=== PATIENT | female | born 1995 | race American Indian/Alaskan Native ===

== ENCOUNTER 2021-10-26 16:50 | Emergency (ER) | payer OTHER ==
[2021-10-26 17:34] VITALS: BP 116/74
[2021-10-26] MEDS ORDERED: IBUPROFEN 400 MG TAB PO ONE (17:50)
[2021-10-26] MEDS ORDERED: METOCLOPRAMIDE 10 MG TAB PO ONE (17:50)
--- NOTE | 2021-10-26 17:56 | Emergency Department Report ---
ED General Adult HPI - General Chief complaint: Head Injury Stated complaint: POSS CONCUSSION PUI?: No Time Seen by Provider: 10/26/21 17:36 Source: patient, RN notes reviewed Mode of arrival: Ambulatory Limitations: No Limitations - History of Present Illness Initial comments: The patient was evaluated in the emergency department for symptoms described in the history of present illness. He/she was evaluated in the context of the global COVID-19 pandemic, which necessitated consideration that the patient might be at risk for infection with the virus that causes COVID-19. Institutional protocols and algorithms that pertain to the evaluation of patients at risk for COVID-19 are in a state of rapid change based on informa tion released by regulatory bodies including the CDC and federal and state organizations. These policies and algorithms were followed during the patient's care in the emergency department. Please note that these policies, procedures and recommendations changed on a rapid basis. The patient is a 26-year-old female who reports that she is not , who also reports that she is not COVID-19 vaccinated. She presents to the ER today with a complaint of closed head injury that was sustained this morning, at approximately 1:30 in the morning while in [facility]. The patient reports that she was at a [employer], had consumed alcohol, and hit her head on glass. The glass did not shatter. She does not believe that she fell or hurt her head from standing. She has a mild headache with nausea. No vomiting. No loss of vision. No additional injuries or complaints. No neck pain. She reports that her mother drove her from [place] to [place]. She is seeking reassurance that she does not have a concussion. -: This morning Location: head Severity scale (0 -10): 6 Quality: aching Consistency: intermittent Improves with: rest Worsens with: movement - Related Data Previous Rx's Medication Instructions Recorded Last Taken Type Acetaminophen [Non-Aspirin Extra 500 mg PO Q6HR PRN #30 tablet 10/26/21 Unknown Rx Strength] Ibuprofen [Motrin] 600 mg PO Q8H PRN #30 tablet 10/26/21 Unknown Rx Metoclopramide [Reglan] 10 mg PO QID PRN #30 tablet 10/26/21 Unknown Rx Allergies Allergy/AdvReac Type Severity Reaction Status Date / Time No Known Allergies Allergy Unverified 10/26/21 17:30 ED Review of Systems ROS: Stated complaint: POSS CONCUSSION Other details as noted in HPI Constitutional: malaise. denies: fever Eyes: denies: eye discharge, vision change ENT: denies: epistaxis Respiratory: denies: cough Cardiovascular: denies: chest pain Gastrointestinal: nausea. denies: vomiting Neurological: headache. denies: weakness ED Past Medical Hx - Past Medical History Previous Medical History?: Yes Hx Asthma: Yes - Surgical History Past Surgical History?: No - Medications Home Medications: Home Medications Medication Instructions Recorded Confirmed Last Taken Type Acetaminophen [Non-Aspirin Extra 500 mg PO Q6HR PRN #30 tablet 10/26/21 Unknown Rx Strength] Ibuprofen [Motrin] 600 mg PO Q8H PRN #30 tablet 10/26/21 Unknown Rx Metoclopramide [Reglan] 10 mg PO QID PRN #30 tablet 10/26/21 Unknown Rx ED Physical Exam - General Limitations: No Limitations General appearance: alert, in no apparent distress - Head Head exam: Present: atraumatic, normocephalic - Eye Eye exam: Present: normal appearance, PERRL, EOMI, other (Visual acuity intact to finger counting, color perception, reading at a close distance). Absent: nystagmus - ENT ENT exam: Present: normal exam, normal orophraynx, mucous membranes moist, TM's normal bilaterally, normal external ear exam - Neck Neck exam: Present: normal inspection, full ROM. Absent: tenderness, meningismus - Respiratory Respiratory exam: Present: normal lung sounds bilaterally. Absent: respiratory distress, wheezes, rales, rhonchi, stridor, decreased breath sounds - Cardiovascular Cardiovascular Exam: Present: regular rate, normal rhythm, normal heart sounds. Absent: bradycardia, tachycardia, irregular rhythm, systolic murmur, diastolic murmur, rubs, gallop - GI/Abdominal GI/Abdominal exam: Present: soft. Absent: distended, tenderness, guarding, rebound, rigid, pulsatile mass - Extremities Exam Extremities exam: Present: normal inspection, full ROM, other (2+ pulses noted in the bilateral upper and lower extremities. There is no palpable cord. negative Homans sign. Muscular compartments are soft. The pelvis is stable.). Absent: pedal edema, calf tenderness - Back Exam Back exam: Present: normal inspection, full ROM. Absent: tenderness, CVA tenderness (R), CVA tenderness (L), paraspinal tenderness, vertebral tenderness - Neurological Exam Neurological exam: Present: alert, oriented X3, normal gait, other (No facial droop. Tongue midline. Extraocular movements intact bilaterally. Facial sensation intact to light touch in V1, V2, V3 distribution bilaterally. 5 and a 5 strength in 4 extremities. Sensation intact to light touch in 4 extremities.). Absent: motor sensory deficit - Psychiatric Psychiatric exam: Present: normal affect, normal mood - Skin Skin exam: Present: warm, dry, intact, normal color. Absent: rash ED Course Vital Signs 10/26/21 17:34 Temperature 98.2 F Pulse Rate 70 Respiratory 20 Rate Blood Pressure 116/74 [Right] O2 Sat by Pulse 99 Oximetry ED Medical Decision Making - Lab Data Vital Signs 10/26/21 17:34 Temperature 98.2 F Pulse Rate 70 Respiratory 20 Rate Blood Pressure 116/74 [Right] O2 Sat by Pulse 99 Oximetry - Medical Decision Making Differential diagnosis, including but not limited to: Concussion, closed head injury, encounter for medical screening examination Assessment and plan: 26-year-old female, who is afebrile, with reassuring vital signs, who is clinically sober with a GCS of 15, NIH score of 0, patient is clinically sober at this time. The cervical spine is cleared through nexus and [place] c spine rule presenting with mild closed head injury, and probable mild concussion. Discussed natural history of concussion. Supportive care, oral medications, and outpatient follow-up. All questions answered. Patient low risk for significant intracranial injury as per the [place] head trauma rule. Critical care attestation.: If time is entered above; I have spent that time in minutes in the direct care of this critically ill patient, excluding procedure time. ED Disposition Clinical Impression: COVID-19 vaccination not done Closed head injury Qualifiers: Encounter type: initial encounter Qualified Code(s): S09.90XA - Unspecified injury of head, initial encounter Disposition: 01 HOME / SELF CARE / HOMELESS Is pt being admited?: No Does the pt Need Aspirin: No Condition: Good Instructions: Returning to School After a Concussion, Teen Additional Instructions: As we discussed, patient is likely experiencing sequelae of minor closed head injury, and alcohol consumption. We recommend that the patient abstain from alcohol consumption. We also recommend that the patient not participate in heavy duty lifting, strenuous physical activity, or contact sports or athletics until cleared to do so by her primary care physician. Symptoms of concussion may last for a few days, weeks or months. We recommend follow-up with a primary care doctor within the next 7 to 10 days for repeat checkup and evaluation. Advance diet as tolerated, drink plenty of fluids, patient may return to light athletics and light duty and 48 hours. Recommend that patient complete COVID-19 vaccination series when able to. Please return to the emergency room right away with new pain, worsened pain, migration of pain, projectile vomiting, change in mental status, confusion, inability tolerate liquid feeds, new, worsened or different symptoms not present on the initial emergency room evaluation Referrals: [facility] [Provider Group] - 3-5 Days Forms: Work/School Release Form(ED)
== END 2021-10-26 18:09 | disposition home or self-care (01) ==
LOC: ED 16:50
DX: S09.90XA Unspecified injury of head, initial encounter (principal); J45.909 Unspecified asthma, uncomplicated; X58.XXXA Exposure to other specified factors, initial encounter; Y93.89 Activity, other specified; Y92.89 Other specified places as the place of occurrence of the external cause; Y99.8 Other external cause status
CPT/HCPCS: 99282

== ENCOUNTER 2022-05-05 18:33 | Emergency (ER) | payer OTHER ==
[2022-05-05 20:15] VITALS: BP 122/71
--- NOTE | 2022-05-07 09:47 | Electrocardiograph Report ---
[facility] Test Date: 2022-05-05 Test Time: 20:21:26 Pat Name: KARYN SOSA Department: Room: Gender: F Rating Specialist: LUIS : 1995 Requested By: ZEB CRUZ Order Number: [id number] Reading MD: Carlos Alberto Somers Measurements Intervals [place] Rate: 60 P: 42 [place]: 167 QRS: 61 QRSD: 75 T: 30 QT: 408 QTc: 408 Interpretive Statements Sinus rhythm No previous ECG available for comparison Electronically Signed On 05-07-2022 9:46:36 EDT by Carlos Alberto Somers
== END 2022-05-07 14:23 | disposition left against medical advice (07) ==
LOC: ED 18:33
DX: R07.89 Other chest pain (principal); Z53.21 Procedure and treatment not carried out due to patient leaving prior to being seen by health care provider
CPT/HCPCS: 93005